=== PATIENT | female | born 1950 | race Two or more races ===

== ENCOUNTER 2019-08-17 07:00 | Day surgery (SDC) | payer OTHER ==
[~2019-08-17 07:00] MED LIST: AMOX1TAB5 PO; ASPIR 8181 MG PO; ATACAND32 MG PO; ETODOLAC500 MG PO; Fioricet Tablet PO; INTESTINEX1 CA1 PO
[2019-08-17] MEDS ORDERED: DEXILANT60 MG PO (11:01)
[2019-08-17] MEDS ORDERED: CARAFATE1 GM PO (11:02)
== END 2019-08-17 13:00 | disposition home or self-care (01) ==
LOC: AMB-ENDOS 07:00
DX: D13.0 Benign neoplasm of esophagus (principal); D13.2 Benign neoplasm of duodenum; K29.50 Unspecified chronic gastritis without bleeding; K20.8 Other esophagitis

== ENCOUNTER 2020-01-18 09:57 | Day surgery (SDC) | payer OTHER ==
[~2020-01-18 09:57] MED LIST changes: +CARAFATE1 GM PO; +DEXILANT60 MG PO
== END 2020-01-18 14:30 | disposition home or self-care (01) ==
LOC: AMB-ENDOS 09:57
PROVIDERS: ATTEND Surgery
DX: K62.89 Other specified diseases of anus and rectum (principal); Z20.828 Contact with and (suspected) exposure to other viral communicable diseases